=== PATIENT | male | born 1985 | race Caucasian/White ===

== ENCOUNTER 2017-07-12 19:35 | Emergency (ER) | payer OTHER ==
[~2017-07-12] VITALS: Ht 172.7 cm; Wt 76.7 kg
[2017-07-12] MEDS ORDERED: MAGN250T PO (19:47)
[2017-07-12] MEDS ORDERED: COPP2CAP PO (19:47)
--- NOTE | 2017-07-12 19:49 | NUR ---
PT BIBSELF AMBULATORY TO ER EBD 14, C/O CHEST PAIN, STARTED YESTERDAY, PRESSURE LIKE/SORE SENSATION, LASTED FOR 10 MINUTES, NOW IT CAME BACK. RR EVEN AND UNLABORED. NO SOB NOTED. NAD NOTED. NO NVD AT THIS TIME. PT NOT DIAPHORETIC. PT GOWNED AND PLACED ON MONITOR.
[2017-07-12] MEDS ORDERED: KETOROLAC TROMETHAMINE INJ 30 MG/ML VIAL IV ONE (20:00)
[2017-07-12 20:01] LABS: BASOPHILS # (AUTO) 0.1 /CMM (0.0-0.2); BASOPHILS % (AUTO) 0.8 % (0.0-2.0); EOSINOPHILS # (AUTO) 0.2 /CMM (0.0-0.7); EOSINOPHILS % (AUTO) 2.1 % (0.0-6.0); HEMATOCRIT 45 % (39-51); LYMPHOCYTES # (AUTO) 2.6 /CMM (0.8-4.8); LYMPHOCYTES % (AUTO) 33.9 % (20.0-44.0); MEAN CORPUSCULAR HEMOGLOBIN 27 PG (26.0-33.0); MEAN CORPUSCULAR HGB CONC 34 g/dl (31.0-36.0); MEAN CORPUSCULAR VOLUME 81 fL (80-96); MONOCYTES # (AUTO) 0.6 /CMM (0.1-1.30); MONOCYTES % (AUTO) 7.5 % (2.0-12.0); NEUTROPHILS # (AUTO) 4.3 /CMM (1.8-8.9); NEUTROPHILS % (AUTO) 55.7 % (43.0-81.0); PLATELET COUNT (AUTO) 246 /CMM (150-450); RDW COEFFICIENT OF VARIATION 12.3 (11.5-15.0); RED BLOOD CELL COUNT(AUTO) 5.47 MIL/uL (4.5-6.0); WHITE BLOOD COUNT (AUTO) 7.8 K/uL (4.3-11.0)
[2017-07-12 20:10] LABS: CALCIUM, SERUM 9.1 mg/dL (8.5-10.1); CARBON DIOXIDE 28 mmol/L (21-32); CHLORIDE 105 mmol/L (98-107); GLUCOSE 103 mg/dL (74-106); POTASSIUM 4.1 mmol/L (3.5-5.1); SODIUM SERUM 138 mmol/L (136-145); UREA NITROGEN, BLOOD 16 mg/dL (7-18)
[2017-07-12 20:19] LABS: TROPONIN I < 0.017 ng/mL (0.00-0.056)
[2017-07-12 20:23] LABS: INR 1.03 (0.87-1.13); PROTHROMBIN TIME 10.7 SECS (9.5-12.7)
[2017-07-12] MEDS ORDERED: KETOROLAC TROMETHAMINE 15 MG/ML VIAL ONE (20:30)
--- NOTE | 2017-07-12 20:33 | NUR ---
TORADOL 15 MG IM LEFT DELTOID, OK PER DR BORGES
--- NOTE | 2017-07-12 21:13 | NUR ---
Patient discharged to home in stable condition. Written and verbal after care instructions given. Patient verbalizes understanding of instruction. ambulatory with a steady gait.
[2017-07-12 21:14] VITALS: BP 118/86
== END 2017-07-12 21:15 | disposition home or self-care (01) ==
LOC: ER 19:40
DX: R09.1 Pleurisy (principal); R07.89 Other chest pain
CPT/HCPCS: 36415; 71010; 80048; 84484; 85025; 85378; 85730; 93005; 96372; 99285; A4606; J1885; Z7610

== ENCOUNTER 2017-09-16 23:30 | Emergency (ER) | payer OTHER ==
[~2017-09-16] VITALS: Ht 172.7 cm; Wt 77.1 kg
[~2017-09-16 23:30] MED LIST: COPP2CAP PO; MAGN250T2 PO
--- NOTE | 2017-09-16 23:40 | NUR ---
31 YO MALE BB SELF. PATIENT IS A/O X 3, C/O NAUSEA/ VOMIT. PATIENT AMBULATED TO ER BED, SKIN WARM AND DRY, RESP EVEN AND UNLABORED. 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 WILL CONTINUE TO AARON
[2017-09-17] MEDS ORDERED: ONDANSETRON HCL/PF 4 MG/2 ML VIAL ONE (00:03)
[2017-09-17] MEDS ORDERED: IV NS 0.9% 1,000 ML BAG IV ONE (00:30)
[2017-09-17] MEDS ORDERED: ONDANSETRON HCL/PF 4 MG/2 ML VIAL IVP ONE (00:30)
[2017-09-17 00:41] LABS: BASOPHILS % (AUTO) 0.3 % (0.0-2.0); EOSINOPHILS # (AUTO) 0.1 /CMM (0.0-0.7); HEMATOCRIT 46 % (39-51); HEMOGLOBIN 15.9 g/dL (13.5-17.5); LYMPHOCYTES % (AUTO) 44.6 % (20.0-44.0); MEAN CORPUSCULAR HEMOGLOBIN 28 PG (26.0-33.0); MEAN CORPUSCULAR HGB CONC 35 g/dl (31.0-36.0); MEAN CORPUSCULAR VOLUME 82 fL (80-96); MONOCYTES # (AUTO) 0.7 /CMM (0.1-1.30); NEUTROPHILS # (AUTO) 4.1 /CMM (1.8-8.9); NEUTROPHILS % (AUTO) 46.1 % (43.0-81.0); PLATELET COUNT (AUTO) 263 /CMM (150-450); RDW COEFFICIENT OF VARIATION 14.3 (11.5-15.0); RED BLOOD CELL COUNT(AUTO) 5.63 MIL/uL (4.5-6.0); WHITE BLOOD COUNT (AUTO) 8.9 K/uL (4.3-11.0)
[2017-09-17 00:42] LABS: APPEARANCE,URINE CLEAR (CLEAR); BILIRUBIN,URINE NEGATIVE (NEGATIVE); BLOOD, URINE NEGATIVE Ery/uL (NEGATIVE); COLOR,URINE YELLOW (YELLOW); KETONES,URINE NEGATIVE (NEGATIVE); LEUKOCYTE ESTERASE ,URINE NEGATIVE (NEGATIVE); NITRITE, URINE NEGATIVE (NEGATIVE); PROTEIN,URINE NEGATIVE (NEGATIVE); UGLUCOSE NEGATIVE (NEGATIVE); UROBILINOGEN,URINE 0.2 EU/dL (0.2)
[2017-09-17 00:52] LABS: CALCIUM, SERUM 9.3 mg/dL (8.5-10.1); CREATININE 0.9 mg/dL (0.6-1.3); POTASSIUM 3.2 mmol/L (3.5-5.1)
[2017-09-17 00:58] LABS: ALBUMIN 4.2 g/dL (3.4-5.0); BILIRUBIN,DIRECT 0.1 mg/dL (0.0-0.2); BILIRUBIN,TOTAL 0.3 mg/dL (0.2-1.0)
--- NOTE | 2017-09-17 01:11 | NUR ---
Patient discharged to home in stable condition. Written and verbal after care instructions given. Patient verbalizes understanding of instruction.IV removed. Catheter intact and site benign. Pressure and 4x4 applied to site. No bleeding noted. PT ambulatory with a steady gait VITAL SIGNS WITHIN NORMAL LIMITS.
[2017-09-17 01:13] VITALS: BP 145/90
== END 2017-09-17 01:17 | disposition home or self-care (01) ==
LOC: ER 23:34
DX: R11.2 Nausea with vomiting, unspecified (principal); E03.9 Hypothyroidism, unspecified
CPT/HCPCS: 36415; 80048-TC; 80076-TC; 81000-TC; 82962-TC; 83690-TC; 85025-TC; A4606; J2405; Z7610

== ENCOUNTER 2019-06-17 00:12 | Emergency (ER) | payer MEDICAID, OTHER ==
[~2019-06-17] VITALS: Ht 172.7 cm; Wt 79.4 kg
[2019-06-17 00:19] VITALS: BP 126/80
== END 2019-06-17 00:37 | disposition home or self-care (01) ==
LOC: ER 00:13
DX: R04.0 Epistaxis (principal); E03.9 Hypothyroidism, unspecified; Z91.19 Patient's noncompliance with other medical treatment and regimen; Z79.899 Other long term (current) drug therapy

== ENCOUNTER 2020-03-22 13:42 | Emergency (ER) | payer MEDICAID ==
[~2020-03-22] VITALS: Ht 172.7 cm; Wt 80.7 kg
[2020-03-22] MEDS ORDERED: IBUPROFEN 600 MG TABLET PO ONE ×2 (14:45→15:00)
--- NOTE | 2020-03-22 15:00 | NUR ---
patient came in to the er c/o right middle finger pain. On room air, breathing evenly and unlabored. Kept comfortable, will continue to monitor accordingly.
[2020-03-22 15:36] VITALS: BP 128/81
--- NOTE | 2020-03-22 15:36 | NUR ---
Patient discharged to home in stable condition. Written and verbal after care instructions given. Patient verbalizes understanding of instruction.
== END 2020-03-22 15:36 | disposition home or self-care (01) ==
LOC: ER 13:44
DX: S60.131A Contusion of right middle finger with damage to nail, initial encounter (principal); E03.9 Hypothyroidism, unspecified; Z79.899 Other long term (current) drug therapy; W23.0XXA Caught, crushed, jammed, or pinched between moving objects, initial encounter; Y93.89 Activity, other specified; Y92.89 Other specified places as the place of occurrence of the external cause; Y99.8 Other external cause status
CPT/HCPCS: 73140-TC

== ENCOUNTER 2020-12-15 10:29 | Emergency (ER) | payer MEDICAID ==
[~2020-12-15] VITALS: Ht 172.7 cm; Wt 85.3 kg
--- NOTE | 2020-12-15 10:45 | NUR ---
FROM HOME AND BIBS FOR C/O PRESSURE HEADACHE, R EYE BLURRY VISION X 1 WEEK. RATES PAIN 5/10. DENIES NUMBNESS/TINGLING IN THE EXTREMITIES. ATTACHED TO THE MONITOR. WARM BLANKET PROVIDED FOR COMFORT. WILL CONTINUE TO MONITOR THE PATIENT.
--- NOTE | 2020-12-15 10:55 | NUR ---
PATIENT TAKEN TO CT
[2020-12-15 11:05] LABS: BASOPHILS % (AUTO) 0.5 % (0.0-2.0); EOSINOPHILS % (AUTO) 1.4 % (0.0-6.0); HEMATOCRIT 49 % (39-51); HEMOGLOBIN 16.4 g/dL (13.5-17.5); LYMPHOCYTES # (AUTO) 1.8 /CMM (0.8-4.8); LYMPHOCYTES % (AUTO) 33.3 % (20.0-44.0); MEAN CORPUSCULAR HGB CONC 33 g/dl (31.0-36.0); MEAN CORPUSCULAR VOLUME 82 fL (80-96); MONOCYTES # (AUTO) 0.5 /CMM (0.1-1.30); MONOCYTES % (AUTO) 8.7 % (2.0-12.0); NEUTROPHILS # (AUTO) 3.1 /CMM (1.8-8.9); NEUTROPHILS % (AUTO) 56.1 % (43.0-81.0); PLATELET COUNT (AUTO) 255 /CMM (150-450); RED BLOOD CELL COUNT(AUTO) 5.98 MIL/uL (4.5-6.0); WHITE BLOOD COUNT (AUTO) 5.5 K/uL (4.3-11.0)
[2020-12-15 11:13] LABS: CALCIUM, SERUM 9.1 mg/dL (8.5-10.1); POTASSIUM 4.3 mmol/L (3.5-5.1)
[2020-12-15] MEDS: IV NS 0.9% 1,000 ML BAG IV ONE (11:27)
[2020-12-15] MEDS: diphenhydrAMINE HCL 50 MG/ML VIAL IV ONE (11:29)
[2020-12-15] MEDS: IBUPROFEN 600 MG TABLET PO ONE (11:29)
[2020-12-15] MEDS ORDERED: IBUP-1957 PO (12:09)
[2020-12-15 12:44] VITALS: BP 137/75
--- NOTE | 2020-12-15 12:44 | NUR ---
Patient discharged to home in stable condition. Written and verbal after care instructions given. Patient verbalizes understanding of instruction. The patient left ER in stable condition.
== END 2020-12-15 12:45 | disposition home or self-care (01) ==
LOC: ER 10:32
DX: R51.9 Headache, unspecified (principal); R42 Dizziness and giddiness; E03.9 Hypothyroidism, unspecified; E78.00 Pure hypercholesterolemia, unspecified; Z79.899 Other long term (current) drug therapy
CPT/HCPCS: 36415; 70450; 80048; 84443; 85025; 96360; 99284; J7030

== ENCOUNTER 2022-02-15 21:01 | Emergency (ER) | payer MEDICAID ==
[~2022-02-15] VITALS: Ht 172.7 cm; Wt 85.7 kg
[~2022-02-15 21:01] MED LIST changes: +IBUP-1957 PO
--- NOTE | 2022-02-15 21:35 | NUR ---
BIBSELF C/O FEVER WITH CHILLS X1 DAY. TOOK TYLENOL AND MOTRIN. PLACED IN RM 19. VITALS CHECKED.
--- NOTE | 2022-02-15 21:40 | NUR ---
COVID SWAB DONE AND SENT TO LAB
--- NOTE | 2022-02-15 21:40 | NUR ---
INFLUENZA SWAB DONE AND SENT TO LAB
--- NOTE | 2022-02-15 22:00 | NUR ---
CT SCAN DONE.
--- NOTE | 2022-02-15 23:00 | NUR ---
Patient discharged to home in stable condition. Written and verbal after care instructions given. Patient verbalizes understanding of instruction.
[2022-02-16 01:32] VITALS: BP 124/81
== END 2022-02-16 01:32 | disposition home or self-care (01) ==
LOC: ER 21:05
DX: U07.1 COVID-19 (principal); G93.0 Cerebral cysts; Z28.310 Unvaccinated for COVID-19
CPT/HCPCS: 70450; 87426; 87804; 99284; C9803

== ENCOUNTER 2022-02-18 18:53 | Emergency (ER) | payer MEDICAID ==
[~2022-02-18] VITALS: Ht 172.7 cm; Wt 81.6 kg
[2022-02-18] MEDS ORDERED: ASPIRIN 81 MG TAB.CHEW PO ONE (19:30)
--- NOTE | 2022-02-18 19:30 | NUR ---
presenting with a feeling of pain and discomfort in his throat while gargling with salt water earlier today. tested + for covid. vss. will cont to monitor
[2022-02-18] MEDS ORDERED: ASPIRIN 81 MG TAB.CHEW ONE (19:45)
[2022-02-18 19:55] LABS: BASOPHILS % (AUTO) 0.2 % (0.0-2.0); EOSINOPHILS % (AUTO) 0.1 % (0.0-6.0); HEMATOCRIT 45 % (39-51); HEMOGLOBIN 15.2 g/dL (13.5-17.5); LYMPHOCYTES # (AUTO) 1.4 K/uL (0.8-4.8); LYMPHOCYTES % (AUTO) 43.7 % (20.0-44.0); MEAN CORPUSCULAR HGB CONC 34 g/dl (31.0-36.0); MEAN CORPUSCULAR VOLUME 81 fL (80-96); MONOCYTES # (AUTO) 0.3 K/uL (0.1-1.30); MONOCYTES % (AUTO) 10.5 % (2.0-12.0); NEUTROPHILS # (AUTO) 1.4 K/uL (1.8-8.9); NEUTROPHILS % (AUTO) 45.5 % (43.0-81.0); PLATELET COUNT (AUTO) 150 K/uL (150-450); RED BLOOD CELL COUNT(AUTO) 5.55 MIL/uL (4.5-6.0); WHITE BLOOD COUNT (AUTO) 3.1 K/uL (4.3-11.0)
[2022-02-18 20:51] LABS: ALANINE AMINOTRANSFERASE 37 U/L (12-78); ALKALINE PHOSPHATASE 59 U/L (46-116); ASPARTATE AMINOTRANSFERASE 31 U/L (15-37); BILIRUBIN,DIRECT 0.1 mg/dL (0.0-0.2); BILIRUBIN,TOTAL 0.6 mg/dL (0.2-1.0); CALCIUM, SERUM 8.6 mg/dL (8.5-10.1); CARBON DIOXIDE 29 mmol/L (21-32); CHLORIDE 103 mmol/L (98-107); GLUCOSE 98 mg/dL (74-106); SODIUM SERUM 137 mmol/L (136-145); TOTAL PROTEIN, SERUM 7.7 g/dL (6.4-8.2); UREA NITROGEN, BLOOD 11 mg/dL (7-18)
[2022-02-18 20:58] LABS: ALBUMIN 4.1 g/dL (3.4-5.0)
--- NOTE | 2022-02-19 00:21 | NUR ---
Patient discharged to home in stable condition. Written and verbal after care instructions given. Patient verbalizes understanding of instruction.
[2022-02-19 01:21] VITALS: BP 118/75
== END 2022-02-19 00:22 | disposition home or self-care (01) ==
LOC: ER 18:54
DX: U07.1 COVID-19 (principal); R07.89 Other chest pain
CPT/HCPCS: 36415; 71045-TC; 80048-TC; 80076-TC; 83880; 84484-TC; 85025-TC